=== PATIENT | male | born 1995 | race Caucasian/White ===

== ENCOUNTER 2018-12-26 08:47 | Emergency (ER) | payer OTHER ==
[~2018-12-26] VITALS: Ht 175.3 cm; Wt 110.2 kg
[~2018-12-26 08:47] MED LIST: AUGMENTIN 875875 MG PO; NOHOMEMEDICATIONS
[2018-12-26 09:32] LABS: ABSOLUTE EOSINOPHILS 0.1 thou/uL (0.0-0.7); ABSOLUTE LYMPHOCYTES 2.3 thou/uL (0.8-5.3); ABSOLUTE MONOCYTES 0.6 thou/uL (0.0-1.2); ABSOLUTE NEUTROPHILS 3.9 thou/uL (1.6-8.1); BASOPHILS 0.6 %; EOSINOPHILS 0.9 %; HEMOGLOBIN 15.8 gm/dL (14.0-18.0); LYMPHOCYTES 33.5 %; MCH 28.5 pg (26.0-34.0); MCHC 34.3 g/dL (28.0-37.0); MPV 7.8 fl. (7.2-11.1); NUCLEATED RBCS 0 /100WBC; PLATELET COUNT* 281 thou/uL (150-400); RBC 5.54 mil/uL (4.50-6.00); RDW-CV 12.4 % (10.5-14.5)
[2018-12-26 09:43] LABS: ANION GAP 6 mmol/L (7-16); BUN 12 mg/dL (7-18); CALCIUM 8.7 mg/dL (8.5-10.1); CHLORIDE 103 mmol/L (98-107); CO2 29 mmol/L (21-32); GLUCOSE 114 mg/dL (70-99); POTASSIUM 3.7 mmol/L (3.5-5.1); SODIUM 138 mmol/L (136-145)
[2018-12-26 09:44] LABS: INR 1.1; PROTIME 11.1 Seconds (9.20-11.50)
[2018-12-26 09:54] LABS: ALKALINE PHOSPHATASE 86 U/L (46-116); LIPASE 86 U/L (73-393); NT-PRO BRAIN NAT PEPTIDE 16 pg/mL (<300); SGOT 18 U/L (15-37); SGPT 55 U/L (30-65); TOTAL BILIRUBIN 0.5 mg/dL (<0.1-1.0); TOTAL PROTEIN 7.4 g/dL (6.4-8.2); TROPONIN-I LEVEL <0.06 ng/mL (<0.06)
[2018-12-26] MEDS ORDERED: NAPROSYN500 M1 PO (10:01)
[2018-12-26 10:08] VITALS: BP 108/58
--- NOTE | 2018-12-26 17:35 | EKG ---
[place] [address] ELECTROCARDIOGRAM REPORT Name: LISE PATEL Room: [facility]#: [id number] Admission: 12/26/18 Attend Phys: Discharge: 12/26/18 Date of : [birth year] Report #: [id number] THIS REPORT FOR: //name// [facility] ED Test Date: 2018-12-26 Test Time: 08:52:20 Pat Name: LISE PATEL Department: Room: Gender: M Telephone Switchboard Operator: SUZI : 1995 Requested By: Loc Waddell Order Number: [id number] MD: Johnny Bashir Measurements Intervals [place] Rate: 98 P: 43 NC: 142 QRS: -1 QRSD: 93 T: 36 QT: 325 QTc: 415 Interpretive Statements Sinus rhythm RSR' in V1 or V2, probably normal variant Baseline wander in lead(s) I,aVL No previous ECG available for comparison Electronically Signed On 12-26-2018 17:35:13 CDT by Johnny Bashir [email or web address] <ELECTRONICALLY SIGNED> By: Johnny Bashir MD, [facility] 12/26/18 1735 1 Johnny Bashir MD, [facility] /EPI
== END 2018-12-26 10:09 | disposition home or self-care (01) ==
LOC: M.ERS 08:47
PROVIDERS: Emergency Medicine
DX: R07.89 Other chest pain (principal)